=== PATIENT | female | born 1970 | race African-American/Black ===

== ENCOUNTER 2017-05-21 19:27 | Emergency (ER) | payer OTHER ==
[2017-05-21 19:43] VITALS: BP 144/101; PULSE 94; BMI 24.9
--- NOTE | 2017-05-21 19:43 | PDOC ---
History of Present Illness - General History Source: Patient Exam Limitations: No Limitations - General Chief Complaint: Chest Pain Stated Complaint: CHEST PAIN Time Seen by Provider: 05/21/17 19:30 - History of Present Illness Initial Comments: 05/21/17 19:42 This is a 46-year-old female with history of hypertension high cholesterol who comes in complaining of substernal chest pain that is sharp in nature. Is not associated with any shortness of breath, nausea, diaphoresis or radiation. Patient denies history of similar pains in the past. The patient said she has had the pain now for approximately 25 minutes. Patient did not take anything for the pain however she did drink some ab alice but it did not make the pain any better. Patient denies any family history of coronary artery disease. Patient does not smoke and denies any recreational drug use. PAST MEDICAL HISTORY: As per history of present illness PAST SURGICAL HISTORY: no significant history FAMILY HISTORY: no pertinant history SOCIAL HISTORY: Pt lives with family and is employed. MEDICATIONS: reviewed ALLERGIES: As per nursing notes Review of Systems General: No fevers or chills, no weakness, no weight loss HEENT: No change in vision. No sore throat,. No ear pain CardioVascular: + chest pain, no shortness of breath Respiratory:No cough, or wheezing. Gastrointestinal: no nausea, vomitting, diarrhea or constipation, No rectal bleeding Genitourinary: No dysuria, hematuria, or frequency Musculoskeletal: No joint or muscle pain or swelling Neurologic: No headache, vertigo, dizziness or loss of consciousness Psychiatric: nor depression Skin: No rashes or easy bruising Endocrine: no increased thirst or abnormal weight change Allergic: no skin or latex allergy All other systems reviewed and normal Exam: General: Well-nourished well-developed individual, no acute distress HEENT: Throat: Normal, tonsils normal, no erythema or exudate Neck: Supple, no meningeal signs, no lymphadenopathy Eyes::Pupils equal reactive and round, extraocular motion intact Chest: Pain is reproduced with palpation Cardiac: S1-S2 normal, regular rate and rhythm, no murmurs rubs or gallops Respiratory: Lungs clear to auscultation bilateral Abdomen: Soft, nondistended, normal bowel sounds, nontender to palpation diffusely Extremities: Warm, dry, no cyanosis, clubbing, or edema Skin: No rashes Neuro: Alert and oriented x3, nonfocal exam, grossly intact, normal gait Psych: Normal mood and affect 05/21/17 21:09 Assessment and plan: This is a 46-year-old female who comes in complaining of substernal chest pain constant and sharp in nature. Pain was reproduced on palpation. Patient has one cardiac risk factor and her heart score is 1. Patient troponin was negative. Patient's EKG was completely normal. Patient given Maalox and Pepcid with some improvement of her symptoms. Patient discharged home will follow-up with her primary care doctor. ( Alessia Ramirez I) Past History - Psycho/Social/Smoking Cessation Hx Suicidal Ideation: No Smoking History: Never smoked - Past Medical History Allergies/Adverse Reactions: Allergies Allergy/AdvReac Type Severity Reaction Status Date / Time No Known Allergies Allergy Unverified 05/21/17 19:34 Home Medications: Ambulatory Orders Unobtainable [Unobtainable] 05/21/17 - Vital Signs Last Vital Signs Temp Pulse Resp BP Pulse Ox 99.1 F 94 H 16 144/101 99 05/21/17 19:28 05/21/17 19:32 05/21/17 19:32 05/21/17 19:32 05/21/17 19:32 Heart Score/ECG Review - History History: Slightly suspicious - Electrocardiogram EKG: Normal - Age Age: </= 45 - Risk Factors Risk Factors Heart Score: Yes Hx Hypertension Based on the list above the patient has:: 1-2 risk factors - Troponin Troponin: </= normal limit - Score Heart Score - Total: 1 #1 05/21/17 20:21 Normal sinus rhythm at 83 bpm Normal ECG (Scott,Susanne) - ADDITIONAL ORDERS Additional order review: Laboratory Results 05/21/17 05/21/17 20:03 20:00 Creatine Kinase 282 H Urine HCG, Qual Negative - Medications Given in the ED: ED Medications Discontinued Medications Generic Name Dose Route Start Last Admin Trade Name Freq PRN Reason Stop Dose Admin Al Hydroxide/Mg Hydroxide 30 ml 05/21/17 19:46 05/21/17 20:02 Mylanta Suspension - PO 05/21/17 19:47 30 ml ONCE ONE Administration Famotidine/Sodium Chloride 50 mls @ 100 mls/hr 05/21/17 19:45 05/21/17 20:00 Pepcid 20 Mg Premixed Ivpb - IVPB 05/21/17 20:14 100 mls/hr ONCE ONE Administration *DC/Admit/Observation/Transfer - Discharge Dispostion Admit: No Diagnosis at time of Disposition: Atypical chest pain - Discharge Dispostion Disposition: HOME Condition at time of disposition: Stable - Referrals Referrals: STAFF,NOT ON [Primary Care Provider] - - Patient Instructions Additional Instructions: Can take Tylenol or Motrin as needed for the pain. Return to the emergency department immediately with ANY new, persistent or worsening symptoms. Continue any medications as previously prescribed by your physician. You should follow up with your primary doctor as soon as possible regarding today's emergency department visit. . Please make sure your doctor reviews the results of your emergency evaluation. Thank you for coming to the Emergency Department today for your care. It was a pleasure to see you today. Please note that your evaluation is INCOMPLETE until you follow-up with your doctor. - Attestations Scribe Attestion: 05/21/17 20:21 Documentation prepared by Susanne Chavez, acting as lead medical technologist for Alessia Ramirez MD. (Susanne Chavez)
[2017-05-21] MEDS ORDERED: FAMOTIDINE 20 MG/50 ML IVPB 50 ML IVPB ONE ×2 (19:45→19:53)
[2017-05-21] MEDS ORDERED: MAG HYDROX/AL HYDROX/SIMETH 355 ML ORAL.SUSP PO ONE (19:46)
[2017-05-21] MEDS ORDERED: MAG HYDROX/AL HYDROX/SIMETH 30 ML UNIT-DOSE CUP ONE (20:00)
[2017-05-21 20:05] VITALS: TEMP 99.1
[2017-05-21 20:29] LABS: CPK(DFH) 282 IU/L (26-140)
[2017-05-21 21:17] LABS: CK MB 1.8 ng/ml (0.3-4.0); TROPONIN I (DFP) < 0.03 ng/ml (0.03-0.50)
--- NOTE | 2017-05-22 08:29 | EKG ---
Test Reason : Blood Pressure : / mmHG Vent. Rate : 083 BPM Atrial Rate : 083 BPM P-R Int : 156 ms QRS Dur : 082 ms QT Int : 362 ms P-R-T Axes : 055 021 030 degrees QTc Int : 425 ms NORMAL SINUS RHYTHM NORMAL ECG NO PREVIOUS ECGS AVAILABLE Confirmed by ROB CORRAL MD ([id number]) on 05/22/2017 8:28:52 AM Referred By: PANDA Confirmed By:ROB CORRAL MD
== END 2017-05-21 21:38 | disposition home or self-care (01) ==
LOC: FER 19:27
PROC: 3E033GC Introduction of Other Therapeutic Substance into Peripheral Vein, Percutaneous Approach (ICD-10-PCS; principal; 2017-05-21)
DX: R07.89 Other chest pain (principal)
CPT/HCPCS: 36415; 82550; 82553; 84484; 84703; 93005; 93010; 99282-25